=== PATIENT | male | born 1960 | race Caucasian/White ===

== ENCOUNTER 2018-09-30 05:06 | Inpatient (IN) | payer OTHER ==
[2018-09-30] VITALS (11 sets, daily range): BP systolic 119–132; BP diastolic 70–82
[~2018-09-30] VITALS: Ht 180.3 cm; Wt 105.2 kg
[2018-09-30] MEDS ORDERED: CELECOXIB 100 MG CAPSULE ONE (06:02)
[2018-09-30] MEDS ORDERED: oxyCODONE HCL SR 10MG TAB.SR.12H PO ONE (06:02)
[2018-09-30] MEDS ORDERED: ACETAMINOPHEN 325 MG TABLET ONE (06:02)
[2018-09-30] MEDS ORDERED: BACITRACIN 50000 UNITS/VIAL ONE (06:34)
[2018-09-30] MEDS ORDERED: TRANEXAMIC ACID 3,000 MG in SODIUM CHLORIDE IRRIG SOLUTION 70 ML IR ONE (07:30)
[2018-09-30] MEDS ORDERED: SCOPOLAMINE HBR 1 EA PATCH.TD72 TD ONE (08:18)
[2018-09-30] MEDS ORDERED: MIDAZOLAM HCL 2 MG/2ML VIAL ONE (08:19)
[2018-09-30] MEDS ORDERED: BUPIVACAINE 0.75% DEXT-PF 2 ML AMPUL ONE (08:19)
[2018-09-30] MEDS ORDERED: BUPIVACAINE MPF W/EPI 0.25% 30 ML VIAL ONE (09:08)
[2018-09-30] MEDS ORDERED: BUPIVACAINE 0.25% 75 MG/30 ML VIAL ONE (10:28)
[2018-09-30] MEDS ORDERED: ONDANSETRON HCL/PF 4 MG/2 ML VIAL IV PRN (10:30)
[2018-09-30] MEDS ORDERED: MAG HYDROX/AL HYDROX/SIMETH 30 ML UDC PO PRN (10:30)
[2018-09-30] MEDS ORDERED: TAMSULOSIN 0.4 MG CAP.SR.24H PO ONE ×2 (10:30→15:00)
[2018-09-30] MEDS ORDERED: MENTHOL/CETYLPYRD (CEPACOL) 1 LOZ LOZENGE PO PRN (10:30)
[2018-09-30] MEDS ORDERED: HYDROMORPHONE 1 MG/1 ML DISP.SYRIN SQ PRN (10:30)
[2018-09-30] MEDS ORDERED: HYDROCODONE/APAP 10/325MG 1 EA TABLET PO PRN ×3 (10:30→11:30)
[2018-09-30] MEDS ORDERED: diphenhydrAMINE HCL 25 MG CAPSULE PO PRN (10:30)
[2018-09-30] MEDS ORDERED: MAGNESIUM HYDROXIDE 30 ML UDC PO PRN (10:30)
[2018-09-30] MEDS ORDERED: oxyCODONE IR immediate release 5 MG PO PRN (10:30)
[2018-09-30] MEDS ORDERED: HYDROMORPHONE INJ 2 MG/ML DISP.SYRIN ONE (10:44)
[2018-09-30] MEDS ORDERED: PROMETHAZINE HCL 50 MG/ML AMPUL IM PRN (11:00)
[2018-09-30] MEDS ORDERED: TYLENOL 650 MG TABLET PO PRN ×2 (11:30)
[2018-09-30] MEDS ORDERED: DULCOLAX 10 MG/SUPP.RECT RC PRN (11:30)
[2018-09-30] MEDS ORDERED: SENOKOT 8.6 MG TABLET PO PRN ×2 (11:30)
[2018-09-30] MEDS ORDERED: AMBIEN 5 MG TABLET PO PRN ×2 (11:30)
--- NOTE | 2018-09-30 12:00 | NUR ---
MS CURRAN NOTES PATIENT RECEIVED FROM OR S/P LEFT TOTAL KNEE ARTHROPLASTY. PATIENT ALERT, ORIENTED X3. DENIES ANY PAIR OR DISCOMFORT. PERIPHERAL IV INTACT PATENT. BED IN LOW LOCKED POSITION. CALL LIGHT WITHIN REACH. PATIENT ORIENTED TO ROOM AND UNIT. WILL MONITOR CLOSELY. Addendum: 09/30/18 at 1914 by FLORENCIA BEDOLLA RN SURGICAL SITE ON LEFT KNEE COVERED WITH DRESSING. ICE BAG ON KNEE. ICD PUMPS ON BILATERAL LEGS. WILL CONTINUE TO MONITOR.
[2018-09-30] MEDS: IV LR 1000 ML 1,000 ML IV PRN (12:28)
[2018-09-30] MEDS ORDERED: BETHANECHOL CHLORIDE (25 MG) 25 MG TABLET PO ONE (13:00)
[2018-09-30] MEDS ORDERED: AMLO5TAB9 PO (15:02)
[2018-09-30] MEDS ORDERED: ATOR10TA PO (15:02)
[2018-09-30] MEDS: DOCUSATE SODIUM 100 MG CAPSULE PO SCH (17:02)
[2018-09-30] MEDS: CEFAZOLIN 1 GM in IV D5W 50 ML IV SCH (17:03)
--- NOTE | 2018-09-30 19:10 | NUR ---
MS RN CLOSING NOTES PT RESTING, ALERT ORIENTED X4, NO SOB OR ACUTE DISTRESS NOTED. PAIN CONTROLLED. ALL MEDICATIONS ADMINISTERED. ALL NEEDS MET. TAUGHT PT USE OF INCENTIVE SPIROMETER, AT BEDSIDE. BED ALARM ON, PT CALL LIGHT WITHIN REACH. WILL CONTINUE TO MONITOR FOR ANY CHANGES.
--- NOTE | 2018-09-30 19:45 | NUR ---
MS RN NOTES RECEIVED PATIENT AWAKE IN BED WITH NO DISTRESS NOTED. CALL LIGHT WITHIN REACH. DRESSING ON LEFT KNEE INCISION INTACT, CLEAN, AND DRY. NO ACTIVE BLEEDING NOTED. NO C/O PAIN OR DISCOMFORT. BLE DVT PUMPS INTACT AND FUNCTIONING PROPERLY. PERIPHERAL LINE INTACT AND PATENT. ENCOURAGED USE OF CALL LIGHT FOR ASSISTANCE AND VERBALIZED GOOD UNDERSTANDING. ROOM FREE OF CLUTTER AND ALL BELONGINGS KEPT NEAR BEDSIDE. WILL CONTINUE TO MONITOR.
[2018-09-30] MEDS: FAMOTIDINE (20 MG) 20 MG TABLET PO SCH (21:03)
[2018-09-30] MEDS: AMLODIPINE BESYLATE 5 MG TABLET PO SCH (21:03)
[2018-10-01] MEDS: CEFAZOLIN 1 GM in IV D5W 50 ML IV SCH (00:36)
[2018-10-01] MEDS: IV LR 1000 ML 1,000 ML IV PRN (00:36)
[2018-10-01] MEDS: HYDROCODONE/APAP 5/325MG 1 EACH TABLET PO PRN ×4 (01:27→16:18)
--- NOTE | 2018-10-01 06:39 | NUR ---
MS RN NOTES PATIENT ASLEEP IN BED WITH NO DISTRESS NOTED. CALL LIGHT WITHIN REACH. ALL DUE MEDS GIVEN ORDERED WITH NO ASE. PERIPHERAL LINE INTACT AND PATENT. NO FURTHER C/O PAIN OR DISCOMFORT. INCISION ON LEFT KNEE REMAIN INTACT, CLEAN, AND DRY WITH NO ACTIVE BLEEDING NOTED. IMMOBILIZER ON. BLE DVT PUMPS ON AND FUNCTIONING PROPERLY. BED IN LOW LOCK SETTING. ALL BELONGINGS KEPT NEAR BEDSIDE. WILL ENDORSE TO ONCOMING SHIFT.
--- NOTE | 2018-10-01 07:26 | NUR ---
MS RN NOTES PATIENT RECEIVED AWAKE, ALERT AND ORIENTED X 4, VERBALLY RESPONSIVE AND RESPONDS TO VERBAL AND TACTILE STIMULI. NO ACUTE DISTRESS AT THIS TIME. PATIENT CALM AND RELAXED. PATIENT DENIES ANY PAIN OR DISCOMFORT. LEFT LEG DRESSING IN PLACE, NO DRAINAGE NOTED. LEFT KNEE IMMOBILIZER IN PLACE. PATIENT ON WBAT. INCENTIVE SPIROMETER AT BEDSIDE, PATIENT ABLE TO DEMONSTRATE PROPER USE OF INCENTIVE SPIROMETER. WILL CONTINUE TO MONITOR. BED LOCKED AND IN LOW POSITION. BILATERAL UPPER SIDE RAILS UP AND LOCKED. CALL LIGHT WITHIN EASY REACH
--- NOTE | 2018-10-01 07:35 | NUR ---
MS RN NOTES DR SENA AT BEDSIDE
[2018-10-01 08:00] VITALS: BP 111/65
[2018-10-01] MEDS: FAMOTIDINE (20 MG) 20 MG TABLET PO SCH ×2 (08:12→21:18)
[2018-10-01] MEDS: DOCUSATE SODIUM 100 MG CAPSULE PO SCH ×2 (08:12→16:18)
[2018-10-01] MEDS: ASPIRIN 325 MG TABLET PO SCH (08:12)
[2018-10-01] MEDS ORDERED: ASPIRIN 325 MG TABLET PO SCH (09:00)
[2018-10-01] MEDS ORDERED: HYDROMORPHONE 1 MG/1 ML DISP.SYRIN SQ PRN (10:30)
[2018-10-01 16:00] VITALS: BP 131/69
--- NOTE | 2018-10-01 18:45 | NUR ---
MS RN NOTES PATIENT RESTING INSIDE ROOM. AWAKE, ALERT AND ORIENTED X 4, VERBALLY RESPONSIVE AND RESPONDS TO VERBAL AND TACTILE STIMULI. NO ACUTE DISTRESS AT THIS TIME. PATIENT ANY PAIN OR DISCOMFORT. IV INTACT AND PATENT. LEFT KNEE IMMOBILIZER IN PLACE. PATIENT KEPT CLEAN, DRY AND COMFORTABLE. WILL ENDORSE TO INCOMING SHIFT FOR [place]. BED LOCKED AND IN LOW POSITION. BILATERAL UPPER SIDE RAILS UP AND LOCKED. CALL LIGHT WITHIN EASY REACH
--- NOTE | 2018-10-01 19:45 | NUR ---
MS CAMMIE INITIAL NOTES RECEIVED REPORT FROM AM NURSE AND SEEN PT IN ROOM RESTING WITH EYES CLOSED BUT AROUSES TO TOUCH. DENIES ANY PAIN AT THIS TIME. STILL WITH IMMOBILIZER ON HIS LEFT KNEE. PT STATED HE'S DOING FINE HE JUST WANT TO SLEEP . ENCOURAGE HIM TO USE THE SPIROMETER WHEN HE'S AWAKE AND USE THE CALL LIGHT SYSTEM IF HE NEEDS SOME HELP OR NEED THE NURSE . HEPLOCK AT THIS TIME. KEPT HIM WARM AND COMFORTABLE AT ALL TIMES. WILL CONTINUE MONITORING. CALL LIGHT AT REACH.
[2018-10-01 19:58] VITALS: BP 150/87
[2018-10-01] MEDS: AMLODIPINE BESYLATE 5 MG TABLET PO SCH (21:18)
--- NOTE | 2018-10-01 21:30 | NUR ---
MS CAMMIE NOTES ROUTINE MEDS GIVEN AND OFFERED PT SOME SNACKS BUT PT STATES "THANK YOU " JUST WANT TO SLEEP. KEPT HIM WARM AND COMFORTABLE AT ALL TIMES. CALL LIGHT AT REACH.
--- NOTE | 2018-10-02 01:40 | NUR ---
MS AREA MECHANIC NOTES PT ASLEEP AT THIS TIME.
--- NOTE | 2018-10-02 07:05 | NUR ---
MS MARINE MECHANIC CLOSING NOTES PT REMAIN RESTING WITH EYES CLOSED BUT AROUSE TO TOUCH. HE STATED HE FEEL THAT HE HAS FEVER . TEMP CAME OUT 99 , TYLENOL GIVEN ORDERED AND PT REQUESTED. STABLE AND SLEPT IAM THE NIGHT. ALL DUE MEDS AND ALL NEEDS MET. ENDORSE TO AM NURSE FOR CONTINUITY OF CARE.
--- NOTE | 2018-10-02 07:42 | NUR ---
M/S RN OPENING NOTES RECEIVED PATIENT ON BED, A/O X4 AND ABLE TO MAKE NEEDS KNOWN. RESPIRATION EVEN AND NON LABORED WITH NO ACUTE RESPIRATORY DISTRESS, LUNGS CLEARED BILATERALLY. ABDOMEN SOFT AND NON DISTENDED WITH ACTIVE BOWEL SOUNDS TO ALL QUADRANTS, URINAL PRESENT ON BED SIDE. COMPLAIN OF PAIN WITH SCALE OF 5 OUT OF 10 AND ABLE TO TOLERATE AT THIS TIME, PATIENT JUST TOOK TYLENOL ORDERED DUE TO COMPLAIN OF CHILLS AND STATED EVENTUALLY FEELING "OKAY",PLACED ON BLANKET AND COOL TEMP OF ROOM WHICH STATED MORE COMFORTABLE. IV SITE AT LEFT HAND WITH NO S/SX OF INFILTRATION. SKIN WARM TO TOUCH AND DRY. ALL CONCERNS ADDRESSED. PLACED CALL LIGHT WITHIN REACH FOR SAFETY. WILL CONTINUE TO EVALUATE CARE.
--- NOTE | 2018-10-02 08:00 | NUR ---
M/S RN NOTES PATIENT FEVER FROM 99 TO 98.5. PATIENT STATED FEELING BETTER. WILL CONTINUE TO MONITOR
[2018-10-02] MEDS: FAMOTIDINE (20 MG) 20 MG TABLET PO SCH (08:17)
[2018-10-02] MEDS: ASPIRIN 325 MG TABLET PO SCH (08:17)
[2018-10-02] MEDS: DOCUSATE SODIUM 100 MG CAPSULE PO SCH (08:17)
--- NOTE | 2018-10-02 08:30 | NUR ---
M/S RN NOTES PATIENT SEEN AND EVALUATED BY DR. SENA WITH NO NEW ORDER. WILL CONTINUE TO MONITOR CARE
[2018-10-02 08:59] VITALS: BP 151/86
--- NOTE | 2018-10-02 12:30 | NUR ---
M/S INFORMATION ENGINEER NOTES PATIENT DISCHARGED IN STABLE CONDITION WITH CARLOS () WHEELED BY JUVENAL JacksonAMPOULE WASHING MACHINE OPERATOR) TO PRIVATE CARE. PATIENT A/O X 4 AND ABLE TO UNDERSTAND DISCHARGE INSTRUCTIONS GIVEN. ASSESSED NO PRESENCE OF ACUTE RESPIRATORY DISTRESS. DENIES PAIN AND DISCOMFORT NOTED. SKIN WARM TO TOUCH AND DRY, LEFT KNEE S/P TKA DRESSING INTACT AND NOT SOILED. IV SITE ON LEFT HAND REMOVED AND ID BANK PER HOSPITAL PROTOCOL. REFUSED LUNCH FOOD FROM HOSPITAL AND WILL JUST EAT AT HOME STATED. ALL CONCERNS ADDRESSED. PATIENT LEFT IN SAFE CONDITION.
--- NOTE | 2018-10-02 12:33 | NUR ---
M/S RN NOTES [facility] CALLED. INFORMED PATIENT DISCHARGE TODAY AT 1230. WILL FF PATIENT IN HOME SETTING.
== END 2018-10-02 12:45 | disposition home health service (06) | DRG 470 ==
LOC: DS 05:06 → MED 10:39
PROVIDERS: ADMIT Internal Medicine; ATTEND Internal Medicine
PROC: 0SRD0J9 Replacement of Left Knee Joint with Synthetic Substitute, Cemented, Open Approach (ICD-10-PCS; principal; 2018-09-30)
DX: M17.12 Unilateral primary osteoarthritis, left knee (principal); Z98.890 Other specified postprocedural states; E78.5 Hyperlipidemia, unspecified; M54.5 Low back pain; Z79.899 Other long term (current) drug therapy
CPT/HCPCS: 36415; 86850-TC; 86921-TC; 87081-TC; 88305-TC; 88311-TC; 97116-TC; 97530-TC; 97760-TC; A4217; A6253; A6402; A6403; C1713; G0378; J0690; J1100; J1170; J1885; J2250; J2550; J2704; J3490; J7060; J7120; L1830